=== PATIENT | female | born 1950 | race Caucasian/White ===

== ENCOUNTER 2018-03-16 01:26 | Observation (INO) ==
[2018-03-16 01:48] LABS: BASO# 0.04 X1000 (0.0-0.2); BASO% 0.4 % (0.0-0.8); EOS# 0.14 X1000 (0.0-0.7); EOS% 1.3 % (0.0-10.0); HEMATOCRIT 40.8 % (37.0-47.0); HEMOGLOBIN 13.5 g/dL (12.0-16.0); IMM GRAN# 0.03 X1000 (0.0-0.04); IMM GRAN% 0.3 % (0.0-0.5); LYMPH# 2.34 X1000 (1.2-3.4); LYMPH% 22.1 % (20.5-51.1); MCH 28.4 PG (27-31); MCHC 33.1 g/dL (33-37); MCV 85.7 FL (81-99); MONO# 1.07 X1000 (0.11-0.59); MONO% 10.1 % (1.7-9.3); MPV 11.6 FL (7.4-10.4); NEUT# 6.99 X1000 (1.4-6.5); NEUT% 65.8 % (42.2-75.2); PLT 212 X1000 (130-400); RBC 4.76 XMIL (4.2-5.4); RDW 13.9 % (11.5-14.5); WBC 10.61 X1000 (4.8-10.8)
[2018-03-16 02:08] LABS: ALBUMIN 3.7 g/dL (3.5-5.0); CALCIUM 9.4 mg/dL (8.8-10.2); CREATININE 1.3 mg/dL (0.5-0.9); POTASSIUM 3.9 mmol/L (3.5-5.1); TOTAL BILIRUBIN 0.4 mg/dL (0.20-1.00); TOTAL PROTEIN 7.1 g/dL (6.3-8.3)
[2018-03-16 02:15] LABS: UR AMPHETAMINES QUAL NONE DETECTED (NONE DETECT); UR BARBITUATES QUAL NONE DETECTED (NONE DETECT); UR BENZODIAZEPIN QUAL NONE DETECTED (NONE DETECT); UR CANNABINOIDS QUAL NONE DETECTED (NONE DETECT); UR COCAINE QUAL NONE DETECTED (NONE DETECT); UR METHADONE QUAL NONE DETECTED (NONE DETECT); UR METHAMPHETAMINE QUAL NONE DETECTED (NONE DETECT); UR OPIATES QUAL PRESUMPTIVE POSITIVE (NONE DETECT); UR OXYCODONE QUAL NONE DETECTED (NONE DETECT); UR PCP QUAL NONE DETECTED (NONE DETECT); UR PROPOXYPHENE QUAL NONE DETECTED (NONE DETECT); UR TCA QUAL NONE DETECTED (NONE DETECT)
[2018-03-16 02:19] LABS: BILIRUBIN URINE NEGATIVE (NEGATIVE); BLOOD URINE 1+ (NEGATIVE); CLARITY SL. CLOUDY (CLEAR); COLOR YELLOW; GLUCOSE URINE NEGATIVE (NEGATIVE); KETONE URINE TRACE mg/dL (NEGATIVE); LEUKOCYTES URINE NEGATIVE (NEGATIVE); NITRITE URINE NEGATIVE (NEGATIVE); UROBILINOGEN URINE NORMAL
--- NOTE | 2018-03-16 02:19 | PROVIDER DOCUMENTATION ---
This chart was entered by Quan Woodard Scribe, acting as scribe for Satnam Vizcarra MD. [facility]-General Adult - General Chief Complaint: Altered Mental Status Stated Complaint: "unresponsive" Time Seen by Provider: 03/16/18 01:28 Source: EMS Unable to obtain history due to:: altered Allergies/Adverse Reactions: Patient Allergies Allergy/AdvReac Type Severity Reaction Status Date / Time aspirin AdvReac HIVES Verified 03/15/18 19:27 Home Medications: Home Medication List Medication Instructions Recorded Confirmed Last Taken Type Clopidogrel Bisulfate [Plavix] 75 mg PO DAILY #30 tab 03/15/18 Unknown Rx - History of Present Illness -Gen Adult Nature of Presenting Problems: EMS brings in a 67 y/o WF with history of CAD and diabetes who arrives by EMS with with blank stare and will not answer questions. Just discharged from [facility] around 2300 for evaluation of chest pain by Dr. Roberts. Patient was upset that she was not admitted. EMS found patient slumped over in a SUV just after being discharged from [facility]. Review of Systems - Adult - REVIEW OF SYSTEMS - ADULT ROS:: unobtainable per condition Constitutional: reports: see HPI Past History - Adult - PAST MEDICAL HISTORY-ADULT Review of Records: reports: Old Records Reviewed, Nursing Assessment Review, Medications Reviewed Major Childhood Illnesses: reports: denies history Cardiovascular: reports: CAD, HTN Endocrine/Immune: reports: Diabetes - PRIOR SURGERIES/PROCEDURES Surgical/Procedure History: reports: orthopedic (extremity) (lbka) - IMMUNIZATION STATUS Childhood Immunizations: See Nurse Assessment Flu Vaccine: See Nurse Assessment - SOCIAL HISTORY Smoking: non-smoker Living Situation: family Physical Exam-General - PHYSICAL EXAM-ADULT Initial Vital Signs Reviewed: Yes - CONSTITUTIONAL General Appearance: no apparent distress, other (nonverbal, eyes open with blank stare) - EYES Eyes: PERRL/EOMI, pink conjunctivae - HEAD, EARS, NOSE, MOUTH & THROAT HENMT: moist mucous membranes, normal ENT inspection - NECK Neck: non-tender, full range of motion, supple, normal inspection - RESPIRATORY Respiratory: lungs clear, no respiratory distress, no accessory muscle use - CARDIOVASCULAR Cardiovascular: normal peripheral pulses, regular rate, rhythm - GASTROINTESTINAL (ABDOMEN) Abdominal Exam: normal bowel sounds, non tender, soft - MUSCULOSKELETAL Back Exam: normal inspection Extremity: normal range of motion. 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) - SKIN Integumentary: normal color, normal turgor, warm/dry - NEUROLOGIC Neurologic: other (nonfocal, uncooperative to exam) - PSYCHIATRIC Psych/Mental Status: other (unable to assess- patient is nonverbal) Progress - PLAN OF CARE/RESULTS Progress/Plan/Lab Results: Orders Category Date Time Status Cardiac Monitoring DIRECTED Care 03/16/18 01:29 Active FSBS/Accucheck Result NOW Care 03/16/18 01:29 Active Saline Loc NOW Care 03/16/18 01:[address] HEAD W/O CONTRAST [CT] Stat Exams 03/16/18 01:30 Ordered CBC WITH ELECTRONIC DIFF [HEME] Stat Lab 03/16/18 01:29 Ordered CK PROFILE [SP CHEM] Stat Lab 03/16/18 01:30 Ordered CMP [COMPREHENSIVE METABOLIC PANEL] [CHEM] Stat Lab 03/16/18 01:29 Uncollected TROPONIN T Stat Lab 03/16/18 01:30 Ordered URINE DRUG SCREEN PL Stat Lab 03/16/18 01:30 Uncollected EKG [EKG] Stat Ther 03/16/18 01:31 Ordered Result Diagrams: 03/16/18 01:40 03/16/18 01:40 - CT/MRI 1 CT Study: Head CT Results: NAD - CONSULTS/PCP/HOSPITALIST Notification #1 *Consult/PCP/Hospitalist*: Dr. Dixon, hospitalist Time Discussed: 04:00 Consult Disposition: Admit Departure - Departure Date of Disposition Decision: 03/16/18 Time of Disposition Decision: 04:00 DIAGNOSIS: Altered mental state Qualifiers: Altered mental status type: unspecified Qualified Code(s): R41.82 - Altered mental status, unspecified Disposition: ADMITTED INPATIENT 09 Certified Medical Emergency: Emergent Condition: Stable Referrals and Follow-Ups: None,PCP [Primary Care Provider] - - Critical Care Note This patient required my direct & personal management of CC.: No Attestation - Physician/ MEENU Attestation Patient care was provided by Advanced Practice Provider:: No The physician spent face to face time with patient:: Yes Advanced Practice Provider documentation review:: Supervising physician onsite and consulted in the evaluation and care of this patient. The physician did have a face to face encounter with the patient. This chart was documented by the indicated scribe, (Quan Woodard Scribe) and accurately reflects the services I performed and decisions made by me, Satnam Vizcarra MD, as attested by the provider's signature.
[2018-03-16 02:22] LABS: URINE BACTERIA 4+ /HFP; URINE EPITHELIAL CELLS <10 /HPF (<10); URINE RBC <10 /HPF (<10); URINE SOURCE CATH; URINE WBC <10 /HPF (<10)
[2018-03-16 03:27] LABS: ACETAMINOPHEN < 1.2 ug/mL (10-30); SALICYLATES < 3.00 mg/dL (3-10)
--- NOTE | 2018-03-16 05:17 | EKG Report ---
Test Performed on : 03/16/2018 02:53:42 AM Test Reason : pain Blood Pressure : / mmHG Vent. Rate : 073 BPM Atrial Rate : 073 BPM P-R Int : 184 ms QRS Dur : 082 ms QT Int : 414 ms P-R-T Axes : 062 072 079 degrees QTc Int : 456 ms Normal sinus rhythm. Normal ECG When compared with ECG of 15-MAR-2018 18:11, (Unconfirmed) Questionable change in QRS axis Unconfirmed Result
[2018-03-16] MEDS ORDERED: ZOFRAN IV ONE (05:30)
--- NOTE | 2018-03-16 05:37 | Diag Imaging Result Doc PS360 ---
EXAM: CT HEAD W/O CONTRAST HISTORY: altered mentation TECHNIQUE: CT head without contrast COMPARISON: None. FINDINGS: No parenchymal hemorrhage. No epidural or subdural hematoma. No subarachnoid hemorrhage. Mild atrophy. No mass identified on this noncontrasted exam. No hydrocephalus. No sinus opacification. There is a small amount of mucus in the left ethmoid sinus IMPRESSION: No hemorrhage. No acute abnormality. A preliminary report was given at 2:13 PM This exam was performed using automated exposure control, adjustment of mA or kV according to patient size, and/or use of iterative reconstruction technique. Electronically signed by Trey Samuel 03/16/2018 5:35 AM
[2018-03-16] MEDS: NORCO-7.5 PO PRN (19:44)
[2018-03-16] MEDS: ZOFRAN ODT PO PRN (19:48)
[2018-03-16 21:37] LABS: BILIRUBIN URINE NEGATIVE (NEGATIVE); BLOOD URINE 1+ (NEGATIVE); CLARITY VERY CLOUDY (CLEAR); COLOR YELLOW; KETONE URINE TRACE mg/dL (NEGATIVE); LEUKOCYTES URINE 2+ (NEGATIVE); NITRITE URINE NEGATIVE (NEGATIVE); PH URINE 6.5; UROBILINOGEN URINE NORMAL
[2018-03-16 21:40] LABS: URINE BACTERIA 2+ /HFP; URINE CAST NONE SEEN /LPF; URINE CRYSTAL NONE SEEN /HPF; URINE EPITHELIAL CELLS >10 /HPF (<10); URINE SOURCE CLEAN CATCH; URINE WBC TNTC /HPF (<10); URINE YEAST NONE SEEN /HPF
[2018-03-16] MEDS: HUMALOG DOSE (PARKWAY) SUBQ SCH (21:52)
--- NOTE | 2018-03-17 00:18 | HISTORY AND PHYSICAL ---
PRIMARY CARE PHYSICIAN: The patient states she has no primary care physician nor a power checker at this time. CHIEF COMPLAINT: Midsternal chest pain and vomiting. HISTORY OF PRESENT ILLNESS: This is a 67-year-old female who presented to [facility] at 6:25 on the . At this time she was complaining of chest pain and chest pressure. She stated that it was a pressure type pain that radiated to her back and neck. She reported that she had a stent placed a month ago in [place] and that this felt like the same type of pain. Workup was negative for MS and she was discharged with unspecified chest pain, instructed to take her medications as directed. According to the chart, on discharge the patient became very upset. An entry in the chart states that the patient "threw a fit" that she was being discharged. Her son did pick her up and according to the chart, it is documented that the patient was upset when she was being discharged and she "threw a fit." Documentation states they called the family and the son said that it would be a while before he could pick her up. She presented back to the ER at 1:27 on the via EMS. Evidently, the patient was taken home from [facility] via EMS and once she got home the family called 911 stating the person was unresponsive. Documentation states that she was awake, alert. Vital signs were stable. She would not answer questions. She did have a blood pressure 204/90 on arrival to the emergency room. Subsequent blood pressures were 143/101 and 157/100. Those were at 3 a.m. and 11 a.m. Blood pressures have since decreased and she is at 131/48. She has remained in sinus rhythm. She is afebrile with sat 99-100% on room air. PHYSICAL EXAMINATION: EYES: Pupils are equal. HENT: Head is normocephalic, atraumatic. Mucous membranes are moist. NECK: Supple with trachea midline. Conjunctivae are pink. CARDIOVASCULAR: Regular rate and rhythm. S1 and S2 appreciated. She has no lower extremity edema to the right with good right pedal pulses. She does have a left nrgri-hsr-[id number] amputation. Bilateral radial pulses are intact. PULMONARY: Breath sounds are clear with no increased work of breathing noted. GASTROINTESTINAL: Abdomen is soft, nontender, nondistended with bowel sounds in all 4 quadrants. SKIN: Warm and dry. NEUROLOGIC: She is awake. She is alert. She follows commands. Her forehead is spared. She has no tongue or uvula deviation. She has equal shoulder shrug. Reservations And Ticketing Agent are 5/5 and equal bilateral. She has no plantar drift. Right lower extremity strength is 4-5/5. LABS: WBC is 10.6 with hemoglobin 13.5, hematocrit 40.8, platelets of 212,000. Sodium 141, potassium 3.9, BUN 26, creatinine 1.3 with a glucose of 189. AST is 39, ALT 44, and alkaline phosphatase is 11. Troponin is negative at 140 today. Of note, she had troponins at 6 o'clock and 9:45 on the night that both were less than 0.010. Urinalysis is essentially negative. Urine drug screen is presumptive positive for opiates. Urine culture is pending. CT of the head revealed no hemorrhage, no acute abnormality. Chest x-ray from the 9 at 6:26 revealed no acute disease. ASSESSMENT AND PLAN: 1. Chest pain. 2. Generalized body aches. 3. Diabetes mellitus. 4. Coronary artery disease. 5. Chronic pain with chronic opiate use. 6. Hypertension. PLAN: The patient has been admitted to the medical/surgical floor and placed on telemetry which we will continue. We will give supplemental oxygen as she needs it. We will continue to trend troponins and cardiac enzymes with neuro checks every 4 hours. We will repeat a CBC and CMP in the morning. The patient is a very poor historian. We will attempt to identify her home medications. The patient stated that she was in [facility] during . A stent was placed. She is unable to state which doctor did this, where the stent was placed, even unable to tell if it was a radial or a femoral stick. She is unable to name any of her medications except for Lortab. She is aware she takes Lortab 7.5 q.4 hours. During my exam, she was not forthcoming on any on her health history with the exception of chronic pain and taking Lortab. Of note, she is unable to name her physicians. She did state that she saw a doctor in [place], that she has no primary care doctor nor a power checker in [place]. She also stated that she has been out of her medications since she was released from rehab in November, but she at another time she stated that she has been out of her [place] for 36 hours and she is afraid she is going to go through withdrawal. Interestingly enough, she is presumptive positive for opiates on her drug screen. We have sent a medical release to [facility] to attempt to obtain records there. We will give her [place] 7.5 q.12 hours. We will attempt to get a list of medications from her family members. For DVT prophylaxis, we will use SCDs to her right lower extremity and for GI prophylaxis start Prilosec. Further treatments pending hospital course. Dictated by THIEN Luna for Eric Dixon MD This chart was documented by, THIEN Luna and accurately reflects the services performed, treatment plan and medical decisions as attested by the providers signature Eric Dixon MD. cc: THIEN Luna MD
[2018-03-17] MEDS ORDERED: TYLENOL PO PRN ×2 (01:38→07:03)
--- NOTE | 2018-03-17 02:20 | HISTORY AND PHYSICAL ---
ADDENDUM: Patient apparently was initially seen in the ER and was confused, disoriented, was not answering questions. She had just been discharged from [facility]'s ER a few hours earlier and then later was found slumped over in an SUV. Currently, she is awake, alert, oriented. She is in no distress. She is asking for pain medicine. Discussed with her that we would not under any circumstances discharge her with pain medicine as she has filled several prescriptions recently. She stated she had not filled one in quite some time. I discussed her that according to the PDMP she had filled a prescription in June, July, August. I discussed with her that although that may be true, according to the state website that someone who has filled several prescriptions under her name and her date of from multiple different physicians over the last 6 months. We will admit her to the hospital, rule out MS and we will follow. cc: Eric Dixon MD
[2018-03-17 03:02] LABS: HEMATOCRIT 39.3 % (37.0-47.0); MCH 28.4 PG (27-31); MCHC 33.1 g/dL (33-37); MPV 11.7 FL (7.4-10.4); RBC 4.57 XMIL (4.2-5.4); RDW 13.9 % (11.5-14.5); WBC 11.82 X1000 (4.8-10.8)
[2018-03-17 03:42] LABS: ALBUMIN 3.6 g/dL (3.5-5.0); CALCIUM 9.1 mg/dL (8.8-10.2); CREATININE 1.8 mg/dL (0.5-0.9); POTASSIUM 4.2 mmol/L (3.5-5.1); TOTAL BILIRUBIN 0.3 mg/dL (0.20-1.00); TOTAL PROTEIN 7.2 g/dL (6.3-8.3)
[2018-03-17] MEDS: HUMALOG DOSE (PARKWAY) SUBQ SCH ×4 (06:23→22:21)
[2018-03-17] MEDS: NORCO-7.5 PO PRN ×2 (08:25→20:24)
[2018-03-17] MEDS: ZOSYN 3.375 GM in NS 50 ML IV SCH ×3 (10:46→20:20)
[2018-03-17] MEDS: ZOFRAN ODT PO PRN (22:24)
--- NOTE | 2018-03-18 01:05 | PROGRESS NOTE ---
DATE: 03/17/2018 SUBJECTIVE: Patient denies any new complaints. States overall that she is feeling okay. Denies chest pains or palpitations. PHYSICAL EXAMINATION: Vital Signs: Temperature 98 degrees, pulse 58, respiratory 20, BP 151/51. General: Patient is awake, alert, obese female who is in no current respiratory distress. HEENT: Normocephalic. Neck: Supple. CARDIOVASCULAR: Regular rate. Chest: Clear and nonlabored. Abdomen: Soft, nondistended, nontender. Extremities: Moves all extremities. ASSESSMENT: 1. Gram-negative jw urinary tract infection. 2. Chest pain. 3. Generalized body aches. 4. Known coronary artery disease. 5. Hypertension. PLAN: We will continue patient in the hospital. Continue antibiotics, IV fluids. Await culture result and further orders as needed. cc: Eric Dixon MD
[2018-03-18] MEDS: ZOSYN 3.375 GM in NS 50 ML IV SCH ×2 (01:14→08:43)
[2018-03-18] MEDS: HUMALOG DOSE (PARKWAY) SUBQ SCH ×4 (06:06→20:46)
[2018-03-18 12:02] LABS: ALBUMIN 3.3 g/dL (3.5-5.0); CREATININE 1.7 mg/dL (0.5-0.9); POTASSIUM 5.1 mmol/L (3.5-5.1); TOTAL BILIRUBIN 0.2 mg/dL (0.20-1.00); TOTAL PROTEIN 6.6 g/dL (6.3-8.3)
[2018-03-18] MEDS: ZOFRAN ODT PO PRN (13:27)
[2018-03-18] MEDS: NORCO-7.5 PO PRN (13:27)
[2018-03-18] MEDS ORDERED: BENADRYL PO PRN (20:09)
[2018-03-18] MEDS: SEPTRA DS PO SCH (20:46)
--- NOTE | 2018-03-18 23:26 | PROGRESS NOTE ---
DATE: 03/18/2018 SUBJECTIVE: Patient notes she still feels bad, still feels tired and weak. Denies any chest pains or palpitations. PHYSICAL EXAMINATION: Vital Signs: Temperature 98.2 degrees, pulse 72, respiratory 20, BP 132/51. General: Patient is awake, alert. She is sitting up in the bed. She is in no current respiratory distress. HEENT: Normocephalic. Neck: Supple. Cardiovascular: Regular rate. Chest: Clear. Abdomen: Soft, nondistended. Extremities: Moves all extremities. ASSESSMENT: 1. Chest pain. 2. Generalized body aches. 3. Diabetes. 4. Known coronary artery disease. 5. Left fvlum-jeb-fxis amputation. 6. Chronic pain. 7. Citrobacter freundii urinary tract infection, sensitive to Levaquin and Bactrim. 8. Acute on chronic renal failure. Creatinine is elevated today at 1.4. 9. Hyponatremia. PLAN: We will continue patient the hospital, place her on Bactrim. Uncertain etiology of the elevation in her creatinine. We will recheck in the morning and we will follow. cc: Eric Dixon MD
[2018-03-19] MEDS: NORCO-7.5 PO PRN ×2 (01:27→13:18)
[2018-03-19] MEDS: ZOFRAN ODT PO PRN ×2 (01:30→13:18)
[2018-03-19] MEDS: HUMALOG DOSE (PARKWAY) SUBQ SCH ×6 (06:08→21:20)
[2018-03-19 07:17] LABS: HEMATOCRIT 37.4 % (37.0-47.0); HEMOGLOBIN 11.9 g/dL (12.0-16.0); MCH 28.6 PG (27-31); MCHC 31.8 g/dL (33-37); MCV 89.9 FL (81-99); MPV 12.2 FL (7.4-10.4); RBC 4.16 XMIL (4.2-5.4); WBC 9.36 X1000 (4.8-10.8)
[2018-03-19 07:52] LABS: AGAP 14; ALBUMIN 3.3 g/dL (3.5-5.0); ALKALINE PHOSPHATASE 105 U/L (32-104); BUN 32 mg/dL (8-22); CALCIUM 9.1 mg/dL (8.8-10.2); CHLORIDE 103 mmol/L (98-107); COSMO 286; CREATININE 1.5 mg/dL (0.5-0.9); ESTIMATED GFR 34; GLUCOSE 194 mg/dL (70-104); GOT 14 U/L (10-30); GPT 20 U/L (10-36); POTASSIUM 5.2 mmol/L (3.5-5.1); SODIUM 137 mmol/L (136-145); TCO2 21 mmol/L (25-35); TOTAL BILIRUBIN < 0.15 mg/dL (0.20-1.00); TOTAL PROTEIN 6.6 g/dL (6.3-8.3)
[2018-03-19] MEDS: SEPTRA DS PO SCH (09:29)
[2018-03-19] MEDS ORDERED: MIRALAX PO PRN (09:29)
[2018-03-19] MEDS ORDERED: MYCOSTATIN POWDER TOP PRN (09:29)
[2018-03-19] MEDS ORDERED: PREPARATION H SUPPOSITORY PR PRN (09:29)
[2018-03-19] MEDS: LEVAQUIN PO SCH (10:37)
[2018-03-19] MEDS: KEPPRA PO SCH ×2 (10:37→20:34)
[2018-03-19] MEDS: COREG PO SCH ×2 (10:37→20:33)
[2018-03-19] MEDS: NORVASC PO SCH (10:37)
[2018-03-19] MEDS: PLAVIX PO SCH (10:37)
--- NOTE | 2018-03-19 19:05 | PROGRESS NOTE ---
DATE: 03/19/2018 SUBJECTIVE: Patient notes that she still feels bad, did not go back to her usual self. Denies any chest pain or palpitations currently. Denies any fevers or chills. PHYSICAL EXAMINATION: Vital Signs: Temp 97.8, pulse 89, respiratory 20, BP 135/52. General: Patient is awake, alert. Currently in no distress. HEENT: Normocephalic. Neck: Supple. Cardiovascular: Regular rate. Chest: Clear, nonlabored. Abdomen: Soft, obese, nondistended. Extremities: Moves all extremities. ASSESSMENT: 1. Chest pain, resolved. 2. Diabetes stable. 3. Urinary tract infection with Citrobacter freundii, sensitive to Levaquin and Bactrim. 4. Hyperkalemia. We will stop Bactrim and switch to Levaquin as her potassium has gone up since starting Bactrim. 5. Acute on chronic renal failure. Creatinine is also increased to 1.8. We will recheck this in the a.m. and adjust as needed. 6. Diabetes. 7. Known coronary artery disease. 8. Chronic pain. PLAN: Patient overall has improved. We will continue to follow. We will continue Levaquin, attempt to get out of bed. Continue to follow. Hopefully home over the next 1 or 2 days. cc: Eric Dixon MD
[2018-03-19] MEDS: NORCO-5 PO PRN (20:33)
[2018-03-19] MEDS: NEURONTIN PO SCH (20:33)
[2018-03-19] MEDS: LIPITOR PO SCH (20:34)
[2018-03-19] MEDS: PERICOLACE PO SCH (20:34)
[2018-03-19] MEDS: LACTULOSE PO SCH (20:34)
[2018-03-20] MEDS: ZOFRAN ODT PO PRN (00:44)
[2018-03-20] MEDS: NORCO-5 PO PRN ×3 (00:44→22:22)
[2018-03-20] MEDS: MOVANTIK PO SCH (05:12)
[2018-03-20] MEDS: NORCO-7.5 PO PRN (05:16)
[2018-03-20] MEDS: PROTONIX PO SCH (06:11)
[2018-03-20] MEDS: HUMALOG DOSE (PARKWAY) SUBQ SCH ×7 (06:11→22:03)
[2018-03-20 06:49] LABS: HEMATOCRIT 36.7 % (37.0-47.0); HEMOGLOBIN 11.6 g/dL (12.0-16.0); MCHC 31.6 g/dL (33-37); MCV 88.6 FL (81-99); MPV 12.1 FL (7.4-10.4); RBC 4.14 XMIL (4.2-5.4); RDW 13.8 % (11.5-14.5); WBC 9.37 X1000 (4.8-10.8)
[2018-03-20 07:13] LABS: AGAP 10; ALBUMIN 3.2 g/dL (3.5-5.0); ALKALINE PHOSPHATASE 95 U/L (32-104); BUN 27 mg/dL (8-22); CALCIUM 9.5 mg/dL (8.8-10.2); CHLORIDE 102 mmol/L (98-107); COSMO 289; CREATININE 1.4 mg/dL (0.5-0.9); ESTIMATED GFR 37; GLUCOSE 241 mg/dL (70-104); GOT 15 U/L (10-30); GPT 18 U/L (10-36); POTASSIUM 5.3 mmol/L (3.5-5.1); SODIUM 138 mmol/L (136-145); TCO2 26 mmol/L (25-35); TOTAL BILIRUBIN < 0.15 mg/dL (0.20-1.00); TOTAL PROTEIN 6.8 g/dL (6.3-8.3)
[2018-03-20] MEDS: NORVASC PO SCH (09:23)
[2018-03-20] MEDS: KEPPRA PO SCH ×2 (09:23→22:04)
[2018-03-20] MEDS: LEVAQUIN PO SCH (09:23)
[2018-03-20] MEDS: CELEXA PO SCH (09:23)
[2018-03-20] MEDS: PLAVIX PO SCH (09:23)
[2018-03-20] MEDS: PERICOLACE PO SCH ×2 (09:23→22:04)
[2018-03-20] MEDS: LACTULOSE PO SCH ×2 (09:23→22:04)
[2018-03-20] MEDS: COREG PO SCH ×2 (09:23→22:04)
[2018-03-20] MEDS: VITAMIN D PO SCH (09:24)
--- NOTE | 2018-03-20 19:23 | PROGRESS NOTE ---
DATE: 03/20/2018 SUBJECTIVE: Her breathing is better but she feels weak. She wants to go to rehab because she has not been out of bed and she feels too weak to go home. OBJECTIVE: Blood pressure 115/48, heart rate of 55, respiratory rate 18, temperature 98 degrees, 99% on room air.Cardiovascular: Regular rate and rhythm. Pulmonary: Bilateral breath sounds. Clear to auscultation. GI: Was soft, nontender, nondistended. Bowel sounds are positive. LAB: White count is 9, hemoglobin and hematocrit 11, 36, platelets 224,000, creatinine 1.4, potassium 5.3. PROBLEM LIST: 1. Citrobacter urinary tract infection sensitive to Levaquin and multiple agents. Her Escherichia coli is pansensitive. She had 2 different cultures in 2 different. Will continue Levaquin and follow up. 2. Acute on chronic renal failure. Her creatinine is at 1.4, looks stable. 3. Diabetes. Continue her regular medications and monitor. 4. Hyperkalemia persists a bit. She is not really on anything that would from my standpoint increase her potassium so we will just monitor for now. She is not particularly toxic. If not we may have to start some other medications. DISPOSITION: Will look at rehab options but we will get PT to evaluate her and determine if she is that weak and continue to follow. cc: Deshawn Ma MD
[2018-03-20] MEDS: LIPITOR PO SCH (22:04)
[2018-03-20] MEDS: NEURONTIN PO SCH (22:04)
[2018-03-21] MEDS: ZOFRAN IV PRN (04:49)
[2018-03-21] MEDS: HUMALOG DOSE (PARKWAY) SUBQ SCH ×7 (06:08→21:54)
[2018-03-21] MEDS: NORCO-5 PO PRN ×2 (06:09→13:12)
[2018-03-21] MEDS: PROTONIX PO SCH (06:10)
[2018-03-21] MEDS: MOVANTIK PO SCH (06:16)
[2018-03-21 07:12] LABS: BASO# 0.05 X1000 (0.0-0.2); BASO% 0.6 % (0.0-0.8); EOS# 0.21 X1000 (0.0-0.7); EOS% 2.4 % (0.0-10.0); HEMATOCRIT 37.3 % (37.0-47.0); HEMOGLOBIN 11.7 g/dL (12.0-16.0); IMM GRAN# 0.04 X1000 (0.0-0.04); IMM GRAN% 0.4 % (0.0-0.5); LYMPH# 2.58 X1000 (1.2-3.4); MCH 27.9 PG (27-31); MCHC 31.4 g/dL (33-37); MCV 88.8 FL (81-99); MONO# 0.62 X1000 (0.11-0.59); NEUT# 5.39 X1000 (1.4-6.5); NEUT% 60.6 % (42.2-75.2); PLT 226 X1000 (130-400); RDW 13.8 % (11.5-14.5); WBC 8.89 X1000 (4.8-10.8)
[2018-03-21 07:30] LABS: CALCIUM 9.1 mg/dL (8.8-10.2); CREATININE 1.8 mg/dL (0.5-0.9); POTASSIUM 5.7 mmol/L (3.5-5.1)
[2018-03-21] MEDS: COREG PO SCH ×2 (11:24→21:55)
[2018-03-21] MEDS: LEVAQUIN PO SCH (11:25)
[2018-03-21] MEDS: LACTULOSE PO SCH ×2 (11:25→21:54)
[2018-03-21] MEDS: NORVASC PO SCH (11:25)
[2018-03-21] MEDS: PLAVIX PO SCH (11:25)
[2018-03-21] MEDS: PERICOLACE PO SCH ×2 (11:25→21:55)
[2018-03-21] MEDS: KEPPRA PO SCH ×2 (11:26→21:55)
[2018-03-21] MEDS: CELEXA PO SCH (11:26)
[2018-03-21] MEDS: VITAMIN D PO SCH (11:26)
--- NOTE | 2018-03-21 20:32 | PROGRESS NOTE ---
DATE: 03/21/2018 SUBJECTIVE: Patient has no focal complaints. OBJECTIVE: Vital Signs: Blood pressure 120/44, heart rate of 69, respiratory rate 20, temperature 98.3, 97% on room air. Cardiovascular: Regular rate and rhythm. Pulmonary: Bilateral breath sounds. Clear to auscultation. Gastrointestinal: Soft, nontender, nondistended. Bowel sounds are positive. LABORATORY DATA: Normal white count, hemoglobin and hematocrit 11 and 37, platelets 226,000. Potassium is up to 5.7, creatinine 1.8. PROBLEM LIST: 1. Citrobacter UTI. She is on Levaquin, but both of them are sensitive to Levaquin. She seems to be doing okay. 2. Chronic renal failure with acute on chronic renal failure. She is on treatment of such. 3. Hyperkalemia. We will continue to monitor. I have started her on some Veltassa and we will see how she does. DISPOSITION: Unfortunately, rehab is not going to be an option. We are trying to get in touch with her family members about assisting with her getting home, but she is going to have to go home here very soon. cc: Deshawn Ma MD MTDD
[2018-03-21] MEDS: LIPITOR PO SCH (21:55)
[2018-03-21] MEDS: NEURONTIN PO SCH (21:55)
[2018-03-21] MEDS: VELTASSA PO SCH (23:21)
[2018-03-22] MEDS: NORCO-5 PO PRN ×2 (01:38→10:08)
[2018-03-22] MEDS: MOVANTIK PO SCH (06:24)
[2018-03-22] MEDS: PROTONIX PO SCH (06:24)
[2018-03-22] MEDS: HUMALOG DOSE (PARKWAY) SUBQ SCH ×6 (06:24→17:24)
[2018-03-22 08:25] LABS: CALCIUM 8.9 mg/dL (8.8-10.2); CREATININE 1.8 mg/dL (0.5-0.9); POTASSIUM 5.7 mmol/L (3.5-5.1)
[2018-03-22] MEDS: VELTASSA PO SCH (10:06)
[2018-03-22] MEDS: LACTULOSE PO SCH (10:08)
[2018-03-22] MEDS: CELEXA PO SCH (10:08)
[2018-03-22] MEDS: LEVAQUIN PO SCH (10:08)
[2018-03-22] MEDS: PLAVIX PO SCH (10:08)
[2018-03-22] MEDS: KEPPRA PO SCH (10:08)
[2018-03-22] MEDS: PERICOLACE PO SCH (10:09)
[2018-03-22] MEDS: NORVASC PO SCH (10:09)
[2018-03-22] MEDS: VITAMIN D PO SCH (10:09)
[2018-03-22] MEDS: COREG PO SCH (10:09)
[2018-03-22] MEDS: ZOFRAN IV PRN (11:50)
--- NOTE | 2018-03-22 13:07 | EKG Report ---
Test Performed on : 03/22/2018 11:22:40 AM Test Reason : tachycardia Blood Pressure : / mmHG Vent. Rate : 054 BPM Atrial Rate : 054 BPM P-R Int : 196 ms QRS Dur : 136 ms QT Int : 444 ms P-R-T Axes : 067 057 077 degrees QTc Int : 421 ms Sinus bradycardia. Nonspecific intraventricular block Abnormal ECG When compared with ECG of 16-MAR-2018 02:53, (Unconfirmed) QRS duration has increased Unconfirmed Result
--- NOTE | 2018-03-22 16:12 | Diag Imaging Result Doc PS360 ---
EXAM: CT RENAL STONE SEARCH - 03/22/2018 HISTORY: pneumaturia TECHNIQUE: CT renal stone search without contrast COMPARISON: None. FINDINGS: There is no hydronephrosis or perinephric edema identified. There is an apparent 3 mm cortical calcification at the posterior medial mid right kidney. There is no discrete renal stone identified. There is no gas identified in the upper collecting systems or ureters. The urinary bladder shows no discrete lesion. There is no gas identified in the urinary bladder lumen and boo. The sigmoid colon abuts the urinary bladder. There is no discrete diverticulitis or mass identified at the sigmoid. There is no discrete colovesicular fistula identified. There is a lower anterior abdominal wall panniculus. There apparently three small hernias which arises at the inferior aspect of the panniculus, each of which contains a loop of small bowel. There are no complicating features identified, and there is no evidence of bowel obstruction. There is retained fecal debris in colon suggesting constipation. There is questionable wall thickening at the posterior inferior rectum. There is retained debris in the stomach, this may relate to recent meal. There has been prior cholecystectomy, appendectomy, and hysterectomy. IMPRESSION: Nonspecific 3 mm cortical calcification at posterior medial mid right kidney. No renal stone or hydronephrosis identified. There is no gas identified in the urinary tracts. There is no discrete colovesicular fistula identified. Anterior abdominal wall panniculus. Three small hernias which arises at the inferior aspect of the panniculus, which which contains a loop of small bowel. No bowel obstruction. Evidence of constipation. Questionable wall thickening at posterior inferior rectum. Correlation clinical evaluation is recommended. This exam was performed using automated exposure control, adjustment of mA or kV according to patient size, and/or use of iterative reconstruction technique. Electronically signed by Kobe Pizarro 03/22/2018 4:10 PM
[2018-03-22 16:20] VITALS: BP 146/52
--- NOTE | 2018-03-23 08:46 | DISCHARGE SUMMARY ---
ADMISSION DATE: 03/16/2018 DISCHARGE DATE: 03/22/2018 DISCHARGE DIAGNOSES: 1. Citrobacter urinary tract infection. 2. Chronic renal failure. I want to say she is around stage 3B, stage 4 maybe, [*] and stage 4. 3. Hyperkalemia. 4. Escherichia coli urinary tract infection. 5. Weakness. SUMMARY: Briefly, a 67-year-old female. She is not from this area. I think she relocated from [place]. She was in [place], and she has had issues being discharged. She threw a fit apparently; but, in any case, she came in. She was found to have a UTI. She does describe pneumaturia, but she was found to have UTI multi-polymicrobial. She did have some renal insufficiency. Creatinine has run between 1.3 to 1.8; it is 1.8 at discharge. She has had some hyperkalemia with potassium varying between 3.9 to 5.7. She is not really on any medications that would increase potassium per se. It looks like she may have a history of seizures because she is on Keppra. She had been placed on Levaquin because it was sensitive to Levaquin on both examples, but with her putative history of seizures, we will not discharge her on that. In any case, she was stable for discharge on the . However, we were not able to get any contact with family, and she had no rehab options. She has exhausted all her days. We did initiate some veltassa. I am going to go ahead and check her kidney situation out and decide if she has anything because she reports pneumaturia on the day of discharge, and we will continue to follow. DISCHARGE MEDICINES: 1. Neurontin 300 at bedtime. 2. Norvasc 10. 3. Lipitor 80. 4. Coreg 6.25 b.i.d. 5. Vitamin D3 at 1000 units daily. 6. Celexa 20 daily. 7. Plavix 75 daily. 8. [place] p.r.n. 9. NovoLog 10 t.i.d. 10. Lactulose 30 b.i.d. 11. Keppra 500 b.i.d. 12. Movantik 25 daily. 13. Nystatin. 14. Protonix 40 daily. 15. MiraLAX 17 daily. 16. Senokot. 17. Ceftin 250 q.12. 18. The Escherichia coli was sensitive to cefazolin, and the Citrobacter was sensitive to ceftriaxone. DISCHARGE CONDITION: Stable. PLAN: We will set up home health and home PT. Follow up with PCP and follow up with Dr. Winter considering hyperkalemia and chronic renal failure. TIME SPENT: 32 minute discharge. cc: Deshawn Ma MD
--- NOTE | 2018-03-23 09:33 | DISCHARGE SUMMARY ---
ADMISSION DATE: 03/16/2018 DISCHARGE DATE: 03/22/2018 PRIMARY CARE PHYSICIAN: None. ADMISSION DIAGNOSES: 1. Chest pain. 2. Generalized body aches. 3. Diabetes. 4. Coronary artery disease. 5. Chronic pain with chronic opiate use. 6. Hypertension. DISCHARGE DIAGNOSES: 1. Citrobacter urinary tract infection. 2. Chronic renal failure, acute on chronic. 3. Hyperkalemia. SUMMARY OF FINDINGS: This is a 67-year-old female who presented to the emergency room after she had been seen at [facility] on 03/15/2018. According to the chart, when she was discharged, she became upset and "threw a fit" that she was being discharged. Her son did pick her up. She presented back to the ER on 03/16/2018 via EMS. She was taken home from [facility], and once she got home, the family called 911, stating the person was unresponsive. Documentation states that she was awake and alert. She would not answer questions. She had a blood pressure of 204/90. Blood pressure is decreased, and when she was admitted it was 131/48. According to the documentation, she had a stent placed at [facility] during December or January, but was unable to tell us which doctor did it, where the stent was placed, or if it was a radial or femoral stick. She was unable to identify any of her home medications, except Lortab. She was found to have a Citrobacter freundii and Escherichia coli UTI. Today, she states that she was having some mild hematuria, so we did a CT stone renal search that showed a nonspecific 3 mm cortical calcification at the posterior medial mid right kidney. No renal stone or hydronephrosis identified. There was some evidence of constipation, but no bowel obstruction. She has been treated appropriately for her UTI, and it was now felt that she could safely be discharged home. It is noted that she still has some elevation in her BUN today at 35 and 1.8, and her potassium is 5.7, but she will be following up with Dr. Winter of Nephrology on 04/04/2018 at 10:30 a.m. DISCHARGE MEDICATIONS: Include Norvasc 10 mg p.o. daily, Lipitor 80 mg p.o. at bedtime, Coreg 6.25 mg p.o. b.i.d., vitamin D3, 1000 units p.o. daily, Celexa 20 mg p.o. daily, Plavix 75 mg p.o. daily, Neurontin 300 mg p.o. at bedtime, Wataga 5 one p.o. t.i.d., NovoLog FlexPen 10 units subcutaneously t.i.d. before meals, lactulose 30 mL p.o. b.i.d., Keppra 500 mg p.o. b.i.d., Movantik 25 mg p.o. daily, Mycostatin powder topically daily p.r.n., Protonix 40 mg p.o. daily, Veltessa 8.4 grams p.o. daily (#20 packets with no refills), Preparation-H suppository rectally daily p.r.n., MiraLAX 17 grams p.o. daily p.r.n., Senokot-S two p.o. b.i.d., prescription for Ceftin 250 mg p.o. every 12 hours (#14 with no refills). DISCHARGE INSTRUCTIONS: All discharge instructions have been reviewed with the patient, and she verbalizes understanding. TIME SPENT: A 33-minute discharge. Dictated by THIEN Hauser for Deshawn Ma MD cc: THIEN Hauser MD
--- NOTE | 2018-03-23 09:44 | PROGRESS NOTE ---
DATE: 03/22/2018 ADDENDUM: The patient looks well the day of discharge. She still has a little bit of hyperkalemia, but my plan is to discharge her on Veltassa. Her creatinine is stable. She looks well enough to go home. She claims she has pneumaturia. I am a little concerned that she creates diagnoses to prevent her from going home. That being said, we went ahead and did a renal colic scan, which showed no pneumaturia and no colovesicular fistula, granted it was noncontrast, but she is very constipated, and I think she is constipated, and that is part of her issue, in the face of pain medication. She takes multiple pain medications. She has been going from hospital system to hospital system to get pain medication, and that is kind of her forefront issue for her. In any case, I feel she is stable to go home. She has no days for inpatient rehab. We will discharge her on Ceftin and Veltassa. I encouraged her to follow up with Dr. Winter for chronic renal failure, and that will be all at this time. cc: Deshawn Ma MD
== END 2018-03-22 19:33 | disposition home or self-care (01) ==
LOC: P.MEDSURG 01:26 → P.ED 01:26 → SUATTDRO 11:54 → P.MEDSURG 12:05
PROVIDERS: ATTEND Internal Medicine
CPT/HCPCS: 70450; 74176; 80048; 80053; 80104; 80196; 80301; 80305; 80307; 80324; 80329; 81001; 82003; 82550; 82948; 84484; 85025; 85027; 87077; 87088; 87186; 93005; 96374; 97163; 97530; 99285; A9270; G0431; G0434; G0477; G0480; G6038; G6039; J1815; J2405; J2543; XXXXX